=== PATIENT | female | born 2000 | race Caucasian/White ===

== ENCOUNTER 2023-08-15 13:30 | Emergency (ER) | payer OTHER ==
[2023-08-15 14:11] VITALS: BP 137/77; PULSE 90; RESP 20; TEMP 98.3; BMI 21.9
[2023-08-15 14:32] LABS: HEMATOCRIT 40.7 % (32.4-45.2); HEMOGLOBIN 13.4 G/dL (10.7-15.3); MCH 30.8 pg (25.7-33.7); MCHC 32.8 g/dl (32.0-36.0); MEAN CELL VOLUME 93.8 fl (80-96); PLATELET COUNT 213.8 10^3/uL (134-434); RBC 4.34 10^6/uL (3.60-5.2); RDW 13.2 % (11.6-15.6)
[2023-08-15 14:49] LABS: BILIRUBIN,TOTAL 1.2 mg/dl (0.2-1); CALCIUM 10.1 mg/dl (8.5-10.1); CREATININE 0.8 mg/dl (0.6-1.3); POTASSIUM 3.9 mmol/L (3.5-5.1); TOT PROT 7.8 g/dl (6.4-8.2)
[2023-08-15] MEDS: SODIUM CHLORIDE 1,000 ML IV STA (15:02)
[2023-08-15] MEDS: ACETAMINOPHEN 1000 MG/100 ML BAG IVPB ONE (15:03)
[2023-08-15] MEDS: ONDANSETRON 4 MG/2 ML VIAL IVPUSH ONE (15:03)
[2023-08-15 15:19] LABS: HCG,QUALITATIVE URINE Negative
[2023-08-15 16:02] LABS: EPITHELIAL CELLS 0-5 /hpf
[2023-08-15 16:07] LABS: PLATELET ESTIMATE ADEQUATE
== END 2023-08-15 16:21 | disposition home or self-care (01) ==
LOC: FER 13:30
PROC: 3E033NZ Introduction of Analgesics, Hypnotics, Sedatives into Peripheral Vein, Percutaneous Approach (ICD-10-PCS; principal; 2023-08-15)
PROC: 3E033GC Introduction of Other Therapeutic Substance into Peripheral Vein, Percutaneous Approach (ICD-10-PCS; 2023-08-15)
PROC: 3E0337Z Introduction of Electrolytic and Water Balance Substance into Peripheral Vein, Percutaneous Approach (ICD-10-PCS; 2023-08-15)
DX: R42 Dizziness and giddiness (principal); R20.2 Paresthesia of skin
CPT/HCPCS: 36415; 80053; 81003; 81015; 84484; 84703; 85027; 87086; 93005; 99284-25; J0131